=== PATIENT | female | born 1935 | race Caucasian/White ===

== ENCOUNTER 2018-01-04 09:38 | Emergency (ER) | payer MEDICARE ==
[~2018-01-04] VITALS: Ht 165.1 cm; Wt 68.0 kg
[~2018-01-04 09:38] MED LIST: ASPIRIN EC325 M1 PO; CALCIUM 600 +1 EAC1 PO; HYDROCODON-ACE1 EAC7 PO; IRON PO; IRON325; NEURONTIN 300300 M1 PO; PRILOSEC 20 MG20 MG PO; RECLAST 55 MG/100 M IV; TOPROL XL50 MG PO; VITAMIN D1000 UNI1 PO; ZESTORETIC 20-1 EAC3 PO; ZOCOR 20 MG TAB20 M1 PO
[2018-01-04] MEDS ORDERED: LISINOPRIL10 MG PO (09:57)
[2018-01-04] MEDS ORDERED: BIOTENE1000 ML (09:58)
[2018-01-04 10:34] LABS: URINE BILIRUBIN NEGATIVE (Negative); URINE BLOOD NEGATIVE (Negative); URINE CLARITY CLEAR; URINE COLOR YELLOW; URINE GLUCOSE-RANDOM NEGATIVE (Negative); URINE KETONES NEGATIVE (Negative); URINE LEUKOCYTES-REFLEX NEGATIVE (Negative); URINE NITRITE-REFLEX NEGATIVE (Negative); URINE PROTEIN TRACE (Negative); URINE UROBILINOGEN 0.2 E.U./dl (0.2-1.0)
[2018-01-04] MEDS ORDERED: NORCO 5-325 TA1 EACH PO (11:28)
[2018-01-04] MEDS ORDERED: CYCLOBENZAPRINE5 MG PO (11:28)
[2018-01-04 11:46] VITALS: BP 153/75
== END 2018-01-04 11:48 | disposition home or self-care (01) ==
LOC: M.ERS 09:38
PROVIDERS: Personal Emergency Response Attendant
DX: M25.552 Pain in left hip (principal); I25.10 Atherosclerotic heart disease of native coronary artery without angina pectoris; I10 Essential (primary) hypertension; M81.0 Age-related osteoporosis without current pathological fracture; Z90.49 Acquired absence of other specified parts of digestive tract; Z88.8 Allergy status to other drugs, medicaments and biological substances

== ENCOUNTER → 2018-04-10 | Outpatient (CLI) | payer MEDICARE ==
[~2018-04-10] MED LIST changes: +BIOTENE1000 ML; +CYCLOBENZAPRINE5 MG PO; +LISINOPRIL10 MG PO; +NORCO 5-325 TA1 EACH PO
== END ==
LOC: M.CT 08:22
DX: K76.0 Fatty (change of) liver, not elsewhere classified (principal); K86.89 Other specified diseases of pancreas; M47.816 Spondylosis without myelopathy or radiculopathy, lumbar region; Z95.0 Presence of cardiac pacemaker

== ENCOUNTER 2020-06-10 16:13 | Inpatient (IN) | payer MEDICARE ==
[~2020-06-10] VITALS: Ht 165.1 cm; Wt 72.1 kg
[2020-06-10 16:15] VITALS: BP 224/109
[2020-06-10 16:38] LABS: ABSOLUTE BASOPHILS 0.1 thou/uL (0.0-0.2); ABSOLUTE EOSINOPHILS 0.3 thou/uL (0.0-0.7); ABSOLUTE LYMPHOCYTES 1.5 thou/uL (0.8-5.3); ABSOLUTE MONOCYTES 0.7 thou/uL (0.0-1.2); ABSOLUTE NEUTROPHILS 4.2 thou/uL (1.6-8.1); BASOPHILS 1.1 %; EOSINOPHILS 4.7 %; HEMATOCRIT 40.6 % (37.0-47.0); HEMOGLOBIN 13.9 gm/dL (12.0-15.0); LYMPHOCYTES 22.2 %; MCH 29.8 pg (26.0-34.0); MCHC 34.2 g/dL (28.0-37.0); MCV 87.1 fL (80.0-100.0); MONOCYTES 10.8 %; MPV 7.6 fl. (7.2-11.1); NUCLEATED RBCS 0 /100WBC; PLATELET COUNT* 209 thou/uL (150-400); POLYS 61.2 %; RBC 4.67 mil/uL (4.20-5.00); RDW-CV 12.7 % (10.5-14.5); WBC 6.8 thou/uL (4.0-11.0)
[2020-06-10 16:47] LABS: CALCIUM 9.1 mg/dL (8.5-10.1); POTASSIUM 3.9 mmol/L (3.5-5.1)
[2020-06-10 17:03] LABS: ALBUMIN 4.1 g/dL (3.4-5.0); TOTAL BILIRUBIN 0.5 mg/dL (<0.1-1.0); TOTAL PROTEIN 7.8 g/dL (6.4-8.2)
[2020-06-10 19:40] VITALS: BP 196/94
[2020-06-11 04:18] LABS: ABSOLUTE EOSINOPHILS 0.2 thou/uL (0.0-0.7); ABSOLUTE MONOCYTES 0.6 thou/uL (0.0-1.2); ABSOLUTE NEUTROPHILS 5.4 thou/uL (1.6-8.1); BASOPHILS 0.6 %; EOSINOPHILS 2.9 %; HEMATOCRIT 42.2 % (37.0-47.0); HEMOGLOBIN 14.1 gm/dL (12.0-15.0); LYMPHOCYTES 13.4 %; MCH 29.4 pg (26.0-34.0); MCHC 33.4 g/dL (28.0-37.0); MCV 87.9 fL (80.0-100.0); MONOCYTES 7.8 %; MPV 8.3 fl. (7.2-11.1); NUCLEATED RBCS 0 /100WBC; PLATELET COUNT* 217 thou/uL (150-400); POLYS 75.3 %; RDW-CV 13.3 % (10.5-14.5); WBC 7.2 thou/uL (4.0-11.0)
[2020-06-11 04:39] LABS: POTASSIUM 3.7 mmol/L (3.5-5.1)
--- NOTE | 2020-06-11 06:09 | NUR ---
ASSUMED PT'S CARE THIS PM SHIFT. PT BOARDING IN THE ER. PT ALERT AND ORIENTED. UP AD NINFA. PT SLEPT WELL THIS SHIFT. PT DID COMPLAIN OF CHEST PAIN OF 5. NITRO GIVEN PER EMAR. PT'S DTR BIANCA CALLED THIS AM TO CHECK ON PT. PT CURRENTLY SLEEPING. WILL CONTINUE TO MONITOR.
[2020-06-11 07:54] VITALS: BP 162/77
--- NOTE | 2020-06-11 11:01 | EKG ---
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1935 Requested By: Estevan Dash Order Number: [id number] MD: Carlos Perez Measurements Intervals [place] Rate: 61 P: 29 MN: 194 QRS: 70 QRSD: 98 T: -8 QT: 427 QTc: 430 Interpretive Statements Sinus rhythm Possible anteroseptal infarct, old Borderline repolarization abnormality Baseline wander in lead(s) II,III,aVR,aVL,aVF,V1,V2,V3,V4,V5,V6 No previous ECG available for comparison Electronically Signed On 06-11-2020 11:01:49 CDT by Carlos Perez [email or web address] <ELECTRONICALLY SIGNED> By: Carlos Perez MD, [facility] 06/11/20 1101 1620 1620 Carlos Perez MD, [facility] /EPI
[2020-06-11 15:34] VITALS: BP 140/75
[2020-06-11 15:35] VITALS: BP 131/70
--- NOTE | 2020-06-11 15:39 | NUR ---
PT ADMITTED WITH HYPERTENSIVE URGENCY. PT ALERT AND ORIENTED. PT RESTING IN BED. PT DENIES ANY PAIN AT THIS TIME. PT ORIENTED TO ROOM. FALL RISK PRECAUTIONS IN PLACE. WILL CONTINUE TO MONITOR.
[2020-06-11 16:00] VITALS: BP 131/70
--- NOTE | 2020-06-11 16:42 | NUR ---
PT REMAINED ALERT AND ORIENTED. PT RESTING IN BED. PT DENIES ANY PAIN THIS SHIFT. FALL RISK PRECAUTIONS IN PLACE. HOURLY ROUNDING COMPLETED. TELE MONITORED. WILL CONTINUE TO MONITOR.
[2020-06-11 20:10] VITALS: BP 150/70
[2020-06-11 20:20] VITALS: BP 193/102
[2020-06-12] VITALS: BP 153/69
[2020-06-12 04:00] VITALS: BP 179/84
--- NOTE | 2020-06-12 04:34 | NUR ---
RECEIVED REPORT AND ASSUMED CARE OF PATIENT AT 1900. FULL ASSESSMENT COMPLETED CHARTED. BED LOCKED AND IN LOW POSITION, PERSONAL ITEMS AND CALL LIGHT IN REACH. PT A&OX3, ON RA, SR ON MONITOR, NO SKIN ISSUES, DENIES PAIN, UP STANDBY, NPO SINCE MIDNIGHT FOR STRESS TEST IN AM.
[2020-06-12 08:00] VITALS: BP 147/82
--- NOTE | 2020-06-12 09:24 | CON ---
[address] [address] CONSULTATION Name: DELILAH CEJA Room: [address] IN M.R.#: [id number] Admission: 06/12/20 Attend Phys: Jose Armando Cary MD Discharge: Date of : 35 Report #: [id number] THIS REPORT FOR: //name// cc: Marium Fowler MD, Lin W. MD ~ THIS REPORT FOR: //name// CC: Jose Armando CORREA MD INDICATION: Chest pain. HISTORY OF PRESENT ILLNESS: The patient is a very pleasant 84-year-old white female who had 5-vessel coronary artery bypass grafting in [place] 8 years ago. She has been relatively stable since that time. Risk factors include family history of coronary artery disease, hypertension and dyslipidemia. She fell 2 weeks ago. More recently, she was having some right-sided pain that was worse with inspiration. Yesterday, this gradually evolved into some pain radiating across to the mid sternal area that felt somewhat more consistent with the pain she had experienced prior to her bypass surgery. The pain had resolved. Thus far, her EKG appears stable and enzymes unremarkable. She is not having that type of pain presently. She did have some relief with nitroglycerin with the heaviness in the mid portion of her chest. PAST MEDICAL HISTORY: 1. Myocardial infarction in 2011, leading to 5-vessel coronary artery bypass grafting in [place]. 2. Hypertension. 3. Dyslipidemia. FAMILY HISTORY: Positive for coronary artery disease. The patient's mother had heart disease in her 60s. Her father of a heart attack at age 72. REVIEW OF SYSTEMS: A 14-point review of systems is positive for occasional nonproductive cough, chest discomfort as outlined above, mild dyspnea on exertion, wears glasses without acute visual loss. Otherwise, 14-point review of systems unremarkable. PHYSICAL EXAMINATION: VITAL SIGNS: Blood pressure presently 166/82, pulse is 66 and regular. GENERAL: This is a pleasant lady in no distress. Mood and affect appropriate. HEENT: The patient is wearing glasses. Extraocular muscles are intact. Mucous membranes are moist. NECK: Shows no jugular venous distention. [place] [address] CONSULTATION Name: DELILAH CEJA Room: [address] IN [facility].#: [id number] Admission: 06/12/20 Attend Phys: Jose Armando Cary MD Discharge: Date of : 35 Report #: [id number] CHEST: Reveals clear lung daniels. CARDIOVASCULAR: Reveals a regular rhythm without gallop or murmur. ABDOMEN: Reveals normal bowel sounds. The abdomen is soft and nontender. EXTREMITIES: Shows no edema. Peripheral pulses are palpable. LABORATORY DATA: Cardiac enzymes are unremarkable. A 12-lead EKG shows sinus rhythm without acute ST or T-wave abnormality. Chest x-ray shows no acute abnormality. IMPRESSION AND RECOMMENDATIONS: 1. Chest pain with some features to suggest possible progressive angina. The patient has a history of coronary artery disease as outlined above. We will proceed with noninvasive stress testing. Further intervention pending those results. 2. Hypertension. Blood pressure moderately elevated. We will increase metoprolol succinate to 50 mg twice daily. Continue lisinopril at current dose. 3. Coronary artery disease. Continue daily aspirin and isosorbide. 4. Dyslipidemia. Continue statin agent with goal LDL of 70 or less. <ELECTRONICALLY SIGNED> By: Corby Holt MD, FACC 06/12/2024 0949 [id number] Holt MD, FACC /nt
[2020-06-12] MEDS ORDERED: TOPROL XL25 MG PO (09:44)
[2020-06-12 12:00] VITALS: BP 159/85
--- NOTE | 2020-06-12 14:49 | NUR ---
Pt is A&O. Resides at home with her . Independent and active. No DME. No hx of HH. Hx of skilled in [place] post open heart surgery. Pt to have stress test today. Goal is home once medically stable, no needs anticipated.
--- NOTE | 2020-06-12 14:55 | EKG ---
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
[2020-06-12 16:00] VITALS: BP 193/102
--- NOTE | 2020-06-12 17:29 | CARDNUC ---
[place] [address] CARDIAC NUCLEAR IMAGING REPORT Name: DELILAH CEJA Room: [address] IN [facility]#: [id number] Admission: 06/12/20 Attend Phys: Jose Armando Cary, Discharge: Date of : 35 Date of Service: 06/12/20 1728 Report #: [id number] THIS REPORT FOR: cc: Marium Fowler MD, Lin W. MD Liston, Michael J. MD MERGED WITH [facility] ~ APPROVED REPORT Imaging Protocol: Rest Tc-99m/Stress Tc-99m 1 day Study performed: 06/11/2020 09:53:00 Indication: Chest pain, HTN urgency. Patient Location: In-Patient Room #: 204 Stress Tech: Sonja Gamboa Stress Nurse: Madonna Garces RN NM Tech:VASILE Masterson Ht: 5 ft 5 in Wt: 150 lbs BSA: 1.75 m2 BMI: 24.95 Medical History Medical History: Angina, CAD s/p [place], CAD s/p CABG, Mild dyspnea, HTN urgency, Recent fall, HLD. Medications: ASA 325 Mg, Lisinopril, Metoprolol, Atorvastatin, Hydralazine. Allergies: Alendronate Sodium, Raloxifene. Cardiac Risk Factors: Age, FHX of CAD, HTN, Hyperlipidemia, SOB. Previous Cardiac Procedures: Myocardial infarction, CABG. Pretest Chest Pain Characteristics: No chest pain Exercise History: Indeterminate Physical Disabilities: Recent fall/weak. Meds Held (24 hrs): Metoprolol, Lisinopril. Resting Data Rest SPECT myocardial perfusion imaging was performed in supine position 30 minutes following the intravenous injection of 10.0 mCi of Tc-99m Sestamibi. Time of rest injection: 1255 Date: 06/12/2020 The images were gated to evaluate regional wall motion and calculate left ventricular ejection fraction. Administration Route: IV Administration Site: [place] [address] CARDIAC NUCLEAR IMAGING REPORT Name: DELILAH CEJA Room: [address] IN [facility]#: [id number] Admission: 06/12/20 Attend Phys: Jose Armando Cary, Discharge: Date of : 35 Date of Service: 06/12/20 1728 Report #: [id number] Pharmacologic Stress Pharmacologic stress test was performed by injecting Regadenoson 0.4 mg IV push over 10-15 seconds immediately followed by the intravenous injection of 33.6 mCi of Tc-99m Sestamibi. Time of stress injection: 1435 Date: 06/12/2020 Administration Route: IV Administration Site: Left Gated Stress SPECT was performed 40 minutes after stress injection. The images were gated to evaluate regional wall motion and calculate left ventricular ejection fraction. Prone imaging was performed. Stress Test Details Stress Test: Pharmacologic stress testing performed using 0.4 mg of regadenoson per 5 mL given IV over 10 seconds. Reason for pharmacologic stress test: Recent fall/weak.. HR Max Heart Rate (APMHR): 136 bpm Resting HR: 73 bpm Target HR (85% APMHR): 115 bpm Max HR Achieved: 125 bpm % of APMHR: 91 Recovery HR: 103 bpm BP Resting BP: 171/89 mmHg Max BP: 136/78 mmHg Recovery BP: 198/107 mmHg ECG Resting ECG: Sinus Rhythm, nonspecific ST-T abnormalities Stress ECG: Sinus Rhythm, nonspecific ST-T abnormalities ST Change: Downsloping ST depression Maximum ST Deviation: 1 mm Arrhythmia: VPC's Recovery ECG: Sinus Rhythm Recovery ST Change: Downsloping ST depression Recovery ST Deviation: 1 mm Recovery Arrhythmia: VPC Clinical Reason for Termination: Completed protocol Stress Symptoms: Abdominal discomfort, Lightheaded, Headache, Bowel activity, arm and hand numbness. Exercise duration: 00 min 00 [place] [address] CARDIAC NUCLEAR IMAGING REPORT Name: DELILAH CEJA Room: [address] IN M.R.#: [id number] Admission: 06/12/20 Attend Phys: Jose Armando Cary, Discharge: Date of : 35 Date of Service: 06/12/20 1728 Report #: [id number] Exercise capacity: 1.00 METs The patient tolerated Lexiscan infusion without significant cardiac symptoms. Nurse Comments An 84 year old female inpatient presented for a sitting Lexiscan r/t HTN urgency and chest pain. Test well tolerated. Recovery continued with HTN as test symptoms subsided. Dr. Prieto consulted for HTN. Patient was escorted by staff via wheelchair to Nuclear Medicine for imaging. Patient stated she felt better at that time. Staff nurse notified of patients HTN before she returned to her room. Stress ECG Conclusion Twelve-lead EKG shows sinus rhythm with subtle ST segment depression that is horizontal in nature in lead V6. EKGs obtained during and post Lexiscan infusion show downsloping ST segment depression in the inferolateral leads of up to 1 to 1.5 mm. There were no stress-induced arrhythmias. Study Quality Study: Good Artifact: Mild Diaphragmatic artifact Study Data At rest, the left ventricular ejection fraction was 66%.. Post stress, the left ventricular ejection was 68%.. TID = 1.11. Perfusion Perfusion images show a moderate sized moderate intensity reversible defect of the basal to mid inferior wall. No other significant fixed or reversible defects are identified. Wall Motion There is hypokinesis of the basal to mid inferior and inferoseptal wall. Nuclear Conclusion ECG Findings: equivocal Clinical Findings: negative for ischemia Nuclear Findings: positive for ischemia Exercise Capacity: not assessed Left Ventricular Function: Preserved Risk Study: high Perfusion study show evidence of basal to mid inferior wall ischemia. Global LV systolic function is preserved. Is [place] [address] CARDIAC NUCLEAR IMAGING REPORT Name: DELILAH CEJA Room: [address] IN [facility].#: [id number] Admission: 06/12/20 Attend Phys: Jose Armando Cary, Discharge: Date of : 35 Date of Service: 06/12/201727 Report #: [id number] <Conclusion> Twelve-lead EKG shows sinus rhythm with subtle ST segment depression that is horizontal in nature in lead V6. EKGs obtained during and post Lexiscan infusion show downsloping ST segment depression in the inferolateral leads of up to 1 to 1.5 mm. There were no stress-induced arrhythmias. <ELECTRONICALLY SIGNED> By: Corby Holt MD, FACC 06/12/201727 27 27 Corby Holt MD, FACC /INF
[2020-06-13] VITALS (24 sets, daily range): BP systolic 92–180; BP diastolic 49–93
--- NOTE | 2020-06-13 04:10 | NUR ---
RECEIVED REPORT AND ASSUMED CARE OF PT AT 1900. FULL ASSESSMENT COMPLETED CHARTED. CALL LIGHT AND PERSONAL ITEMS IN REACH, BED LOCKED AND IN LOW POSITION. PT A&OX4, ON RA, SR ON MONITOR, UP STANDBY, DENIES PAIN, CURRENTLY NPO.
--- NOTE | 2020-06-13 13:32 | NUR ---
Pt to have heart cath today. Possible dc to home tomorrow. Following.
--- NOTE | 2020-06-13 15:08 | NUR ---
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 LOCK AND DAM EQUIPMENT REPAIRER NURSING STAFF AT PT BEDSIDE, REPORT RECEIVED. PT C/O CHEST PAIN. EKG HAS BEEN ORDERED AND IS BEING COMPLETED. CARDIAC LOCK AND DAM EQUIPMENT REPAIRER NURSING STAFF HAVE SEEN EKG AND ARE IN CONTACT WITH RN INTERNAL MEDICINE. PT VS ARE 108/59, 75, 18 AND 91% ON ROOM AIR. GROIN SITE DRESSING IS DRY AND INTACT. TISSUE SURROUNDING SITE IS SOFT TO TOUCH. RIGHT PEDAL PULSE IS 2+ with warm foot and cap refill which is less than 3 seconds. At 1430 pt transfer via bed to icu. report regarding am nursing assessment, vital signs given to icu nurse assuming care. results of cardiac cath to be given by corn lab technician rn
--- NOTE | 2020-06-13 15:30 | EKG ---
[place] [address] ELECTROCARDIOGRAM REPORT Name: DELILAH CEJA Room: [address] IN .R.#: [id number] Admission: 06/12/20 Attend Phys: Jose Armando Cary, Discharge: Date of : 35 Date of Service: 06/13/20 1408 Report #: [id number] THIS REPORT FOR: //name// [facility] Test Date: 2020-06-13 Test Time: 14:08:14 Pat Name: DELILAH CEJA Department: Room: [facility] Gender: F Psychological Aide: : 1935 Requested By: Corby Holt Order Number: [id number] Reading MD: Corby Holt Measurements Intervals [place] Rate: 73 P: 68 RI: 209 QRS: 65 QRSD: 91 T: 65 QT: 413 QTc: 456 Interpretive Statements Sinus rhythm Probable left atrial enlargement Probable left ventricular hypertrophy Inferior infarct, acute (LCx) Lateral leads are also involved Compared to ECG 06/10/2020 16:34:18 No significant changes Electronically Signed On 06-13-2020 15:30:47 CDT by Corby Holt [email or web address] <ELECTRONICALLY SIGNED> By: Corby Holt MD, FAC 06/13/20 1530 1408 1408 Corby Holt MD, FAC /EPI
[2020-06-13 15:57] LABS: HEMOGLOBIN 15.4 gm/dL (12.0-15.0); MCHC 34.2 g/dL (28.0-37.0); MCV 87.7 fL (80.0-100.0); MPV 7.6 fl. (7.2-11.1); RBC 5.13 mil/uL (4.20-5.00); RDW-CV 13.1 % (10.5-14.5); WBC 8.3 thou/uL (4.0-11.0)
[2020-06-13 16:05] LABS: APTT 54.1 Seconds (25.0-31.3); INR 1.4
--- NOTE | 2020-06-13 16:53 | NUR ---
RECEIVED BEDSIDE REPORT AND ASSUMED CARE OF PT @ 1430.PT IS A/O X4.VSS.NEW IV INSERTED IN RIGHT WRIST.HEPARIN GTT INITATED PER CARDIOLOGY PROTOCOL.NITROGLYCERIN GTT INFUSING PER TITRATION ORDERS.POST CATH EKG COMPLETED.PT HAS HAD NAUSEA-MEDICATIONS GIVEN.CHEST PAIN MANAGED WITH IV MEDICATIONS.RIGHT GROIN CATH SITE CLEAN,DRY, AND INTACT.POST CATH VITALS COMPLETED.REMAINS ON BEDREST UNTIL 192906/13/20.CALL LIGHT AND FALL PRECAUTIONS IN PLACE.WILL CONTINUE TO MONITOR FOR DURATION OF SHIFT.
[2020-06-14] VITALS (30 sets, daily range): BP systolic 96–159; BP diastolic 46–78
--- NOTE | 2020-06-14 05:23 | NUR ---
VITALS STABLE, TEMP MAX 99.0 F. PATIENT DENIES PAIN/DISCOMFORT. NITRO GTT TURNED OFF AROUND 2100. PT SLEPT THROUGH THE NIGHT. HEPARIN GTT REMAINS RUNNING. OTHERWISE UNEVENTFUL NIGHT.
[2020-06-14 08:42] LABS: ABSOLUTE EOSINOPHILS 0.1 thou/uL (0.0-0.7); ABSOLUTE LYMPHOCYTES 1.1 thou/uL (0.8-5.3); BASOPHILS 0.3 %; EOSINOPHILS 0.7 %; LYMPHOCYTES 9.7 %; MCH 29.1 pg (26.0-34.0); MCHC 33.4 g/dL (28.0-37.0); MONOCYTES 9.2 %; MPV 7.9 fl. (7.2-11.1); NUCLEATED RBCS 0 /100WBC; PLATELET COUNT* 218 thou/uL (150-400); POLYS 80.1 %; RBC 4.83 mil/uL (4.20-5.00); RDW-CV 12.9 % (10.5-14.5); WBC 11.3 thou/uL (4.0-11.0)
[2020-06-14 08:55] LABS: ALBUMIN 3.5 g/dL (3.4-5.0); CALCIUM 9.2 mg/dL (8.5-10.1); POTASSIUM 3.8 mmol/L (3.5-5.1)
[2020-06-14 08:56] LABS: TROPONIN-I LEVEL 11.44 ng/mL (<0.06)
--- NOTE | 2020-06-14 09:08 | NUR ---
3618 ASSUMED CARE OF PATIENT. PLEASE SEE DOCUMENTED ASSESSMENT. PATIENT DENIES CHEST PAIN. PLAN IS TO ORDER DIET AND REMOVE VICK CATHETER,MONITOR FOR CHEST PAIN
--- NOTE | 2020-06-14 13:37 | NUR ---
1235 PATIENT IS NOW TELEMETRY STATUS. PATIENT AND DAUGHTER INFORMED OF THIS.
--- NOTE | 2020-06-14 14:51 | NUR ---
ICU rounds: Tele status. Goal is home.
--- NOTE | 2020-06-14 16:59 | CARD ---
[address] [address] CARDIAC CATH REPORT Name: DELILAH CEJA Room: [address] ADM IN .R.#: [id number] Admission: 06/12/20 Attend Phys: Jose Armando Cary MD Discharge: Date of : 35 Report #: [id number] THIS REPORT FOR: //name// cc: Marium Fowler MD, Lin W. MD ~ ADDENDUM APPROVED REPORT Study performed: 06/13/2020 11:39:26 Patient Details Patient Status: In-Patient Room #: The patient is a 84 year-old female Event Personnel Corby Holt State Epidemiologist, Erinn Berman RN RN, Khurram Kaba [facility] NURSE Monitor, Deep Muse [facility] NURSE Scrub, Heidi Francis RN Monitor, , Carlos Perez Information Technology Data Analyst, Angelita Ramos RTR Monitor Procedures Performed Art Access - R femoral artery Left Heart Cath w/or w/o Coronaries [facility] Place w/wo Plasty Single CIRC Hemostasis w/ Mynx Admission/Lab Medications/Medications given during procedure Fentanyl IV 25 mcg, Midazolam (Versed) IV 2 mg, Oxygen Nasal cannula 2 l per min, Lidocaine Subcut 14 ml, 0.9% Sodium Chloride IV 75 ml per hr, Oxygen Nasal cannula 4 l per min, Angiomax IV 11 ml, Nitroglycerin SL 0.4 mg, Angiomax Drip IV 26.07 ml per hr, Apresoline IV 10 mg, Zofran (Ondansetron) IV 4 mg, Effient PO 60 mg Procedure Narrative The patient was brought urgently to the Cardiac Catheterization Laboratory and was prepped and draped in a sterile manner. The right femoral was infiltrated with 2% Lidocaine subcutaneous anesthesia. A [place] 6 FR sheath was inserted into the right femoral artery. Coronary angiography was performed using coronary diagnostic catheters. The right coronary system was accessed and visualized with a Diagnostic 6 Fr JR 4 catheter. The left coronary system was accessed and visualized with a Diagnostic 6 Fr JL 4 catheter. The left ventricle was accessed and visualized with a Diagnostic 6 Fr Pigtail catheter. Left ventricular/Aortic Valve gradient assessed via catheter pullback. Left ventriculogram was performed in [place] projection. Closure device was deployed with a Fr mynx 6f/7f. The patient tolerated the procedure well and there were no complications associated with the procedure. [place] [address] CARDIAC CATH REPORT Name: DELILAH CEJA Room: [address] IN [facility].#: [id number] Admission: 06/12/20 Attend Phys: Jose Armando Cary MD Discharge: Date of : 35 Report #: [id number] Intraoperative Conscious Sedation Sedation start time: 12:07 Case end Time: 13:23 Fentanyl 50 mcg Versed 2 mg Fluoro Time: 23.9 minutes Dose: DAP 538162 cGycm2 2502 mGy Contrast Type and Amount: Visipaque 350 ml Coronary Angiography The patient's coronary anatomy is right dominant. [place] Artery Percent Stenosis A COLLIER graft to the distal LAD appears very small in caliber and possibly atretic. A saphenous vein graft to a large second diagonal branch is widely patent with good proximal and distal anastomoses. A saphenous vein graft presumed to be to the obtuse marginal branch is is totally occluded proximally. An ostia for a possible right coronary graft appears occluded. Diagnostic Cath Left Main The left main coronary artery appears calcified and somewhat ectatic bifurcating into a left anterior descending and circumflex coronary artery. LAD The proximal LAD appears ectatic with a 70% tubular narrowing in the midportion. Distally the vessel is filled by collateral flow from the COLLIER graft and a graft to diagonal branch. Diagonal 1 A small first diagonal branch appears small in caliber and diffusely diseased. Diagonal 2 A large branch second diagonal branch is grafted with a saphenous vein graft and fills the distal LAD retrogradely. Circumflex The circumflex coronary artery has a 90% long tubular stenosis distally. OM1 A first obtuse marginal branch is small in size and diffusely plaqued. A portion of saphenous vein graft is noted to connect the first and second obtuse marginal branches. OM2 A second obtuse marginal branch is moderate in size and diffusely plaqued. Right Coronary The right coronary artery is diffusely plaqued without hemodynamically significant stenoses. R PDA The right PDA is diffusely diseased with long tubular 70% [place] [address] CARDIAC CATH REPORT Name: DELILAH CEJA Room: [address] IN [facility].#: [id number] Admission: 06/12/20 Attend Phys: Jose Armando K. Luis Daniel, MD Discharge: Date of : 35 Report #: [id number] RPLV A small right posterior lateral LV branch is diffusely diseased up to 70%. Left Ventriculography The left ventricle is normal in size with Preserved contractility. The left ventricular ejection fraction is estimated to be 55-60%. There appears to be subtle hypokinesis in the distal inferolateral wall. Hemodynamics The aortic pressure is 164/72 mmHg with a mean of 69 mmHg. The left ventricular pressure is 156/5 mmHg with a mean of mmHg. The left ventricular end diastolic pressure is 11 mmHg. PCI Technique Lesion Anticoagulation was achieved with Angiomax Drip. Patient was preloaded with Angiomax IV 11 ml. Percutaneous coronary intervention was performed on the distal circumflex artery segment. The lesion stenosis prior to intervention was 90% with KESHIA flow. A 6F XB LAD 3.5 Guide Catheter was used to engage the left ostium. A IG: BMW 190cm Interventional Guidewire was used to cross the lesion. BALLOON DILATION A Balloon catheter Mini Trek RX 2.0 X 15 was inserted and inflated up to 8.00atm for 11seconds. Additional Inflation: 8.00atm for 7seconds. Additional Inflation: 8.00atm for 9seconds. STENT DEPLOYMENT A drug-eluting stent Aramis RX Stent 2.0X22mm was inserted and inflated up to 24.00atm for 10seconds. A drug- eluting stent Aramis RX Stent 2.0 x 8mm was inserted and inflated up to 10 LARRY for 6 seconds and 11 LARRY for 7 seconds. POST STENT DEPLOYMENT BALLOON DILATION A Balloon catheter NC Trek RX 1.5 X 12 was inserted and inflated up to 24.00atm for 11seconds. Additional Inflation: 24.00atm for 6seconds. A balloon catheter NC Trek RX 2.25 x 12 was inserted and inflated up to 10 LARRY for 9 seconds, 12 LARRY for 7 seconds, and 14 LARRY for 8 seconds. Final angiography reveals 10 % stenosis with KESHIA 3 flow. Conclusion 1. Severe three-vessel coronary artery disease as outlined above. 2. Patent COLLIER graft to the LAD that appears possibly atretic. [address] [address] CARDIAC CATH REPORT Name: DELILAH CEJA Room: [address] IN M.R.#: [id number] Admission: 06/12/20 Attend Phys: Jose Armando Cary MD Discharge: Date of : 35 Report #: [id number] 3. Widely patent saphenous vein graft to a large second diagonal branch. 4. Occluded saphenous vein graft to the obtuse marginal branches. 5. Probable occluded graft to the right coronary artery. 6. Preserved left ventricular systolic function. 7. Normal left ventricular end-diastolic pressure. 8.Successful PCI with deployment of sequential drug eluting stents at the site of 90% distal Cx stenosis with 10% residual narrowing and KESHIA 3 flow to the distal vessel. Recommendations Cardiac Risk Reduction Program 1. Percutaneous coronary intervention to the unprotected circumflex marginal system. 2. Continue aggressive risk factor modification and medical management. Medications Administered Aspirin (any) Ticagrelor Diagnostic Cath Approved by: Corby Holt MD Date/Time: 06/14/2020 16:58:02 <ELECTRONICALLY SIGNED> By: Carlos Perez MD, [facility] 06/14/20 1658 1658 1658Jojoe Perez MD, FACC /INF
--- NOTE | 2020-06-14 17:09 | NUR ---
PATIENT PROGRESSING TOWARDS GOALS. PATIENT IS NOW TELEMETRY STATUS. NO CHEST PAIN TODAY. OFF OF HEPARIN DRIP. VICK CATHETER DISCONTINUED. PATIENT IS UP TO C TO VOID. PT IS CONSTIPATED. THIS IS ADDRESSED. VSS. SEEN BY [facility]. DAUGHTER HAS VISITED.
[2020-06-15] VITALS (15 sets, daily range): BP systolic 86–127; BP diastolic 53–73
--- NOTE | 2020-06-15 05:26 | NUR ---
VITALS STABLE, AFEBRILE. DENIES PAIN, DISCOMFORT, NAUSEA. SLEPT THROUGH THE NIGHT. ABLE TO GET UP TO THE COMMODE WITH NO DIFFICULTY. CALL LIGHT WITHIN REACH.
[2020-06-15] MEDS ORDERED: NITROGLYCERIN0.4 MG SUBLING (08:25)
[2020-06-15] MEDS ORDERED: LIPITOR 40 MG T40 M1 PO (08:25)
[2020-06-15] MEDS ORDERED: EFFIENT10 MG PO (08:25)
[2020-06-15 09:26] LABS: CHOLESTEROL 162 mg/dL (<200); HDL CHOLESTEROL 70 mg/dL (>40); LDL CHOLESTEROL 79 mg/dL (<100); TC:HDL 2.3 Ratio (Not establshd); TRIGLYCERIDE 65 mg/dL (<150); VLDL 13 mg/dL (<40)
[2020-06-15 09:27] LABS: SERUM ASSESSMENT Clear
--- NOTE | 2020-06-15 11:35 | NUR ---
DISCHARGE ORDERS RECIEVED ON PATIENT, [facility] CAME TPO WALK PATIENT PRIOR TO DISCHARGE. PATIENT BECAME DIZZY UPON STANDING. ORTHOSTATICS WERE COMPLETED AND SITTING 93/53 STANDING 86/54 LAYING DOWN 88/55, AFTER 5-10 MIN OF LAYING BLOOD PRESSURE RETURNED TO 112/54. DR CERNA IS AWARE AND PUTTING PARAMETER ON BLOOD PRESSURE MEDICATIONS. WILL CALL [facility] AND UPDATE THEM.
--- NOTE | 2020-06-15 11:44 | EKG ---
[place] [address] ELECTROCARDIOGRAM REPORT Name: DELILAH CEJA Room: [address] ADM IN M.R.#: [id number] Admission: 06/12/20 Attend Phys: Jose Armando Cary, Discharge: Date of : 35 Date of Service: 06/13/20 1546 Report #: [id number] THIS REPORT FOR: //name// [facility] Test Date: 2020-06-13 Test Time: 15:46:02 Pat Name: DELILAH CEJA Department: Room: [address] Gender: F Filling Carrier: : 1935 Requested By: Carlos Perez Order Number: [id number] Gustavo MD: Corby Holt Measurements Intervals Emily Rate: 78 P: 144 OH: 234 QRS: 137 QRSD: 92 T: 132 QT: 394 QTc: 449 Interpretive Statements Sinus rhythm Prolonged OH interval Probable left atrial enlargement Limb leads reversed Consider left ventricular hypertrophy Persistent ST elevation inferolateral leads compared to ECG 06/13/2020 14:08:14 First degree AV block now present Electronically Signed On 06-15-2020 11:44:38 CDT by Corby Holt [email or web address] <ELECTRONICALLY SIGNED> By: Corby Holt MD, FACC 06/15/20 1144 1546 1546 Corby Holt MD, FAC /EPI
--- NOTE | 2020-06-15 14:24 | NUR ---
PATIENT DISCHARGED HOME AFTER FLUID BOLUS INFUSED. PATIENT CONTINUED TO HAVE ORTHOSTATIC HYPOTENSION, CALLED TO ZENA ROMERO AND ORDER RECIEVED TO DECREASE METOPROLOL TO 25 MG BID HER NORMAL DOSE AND TO HOLD IF SBP IS LESS THAN 110. PATIENT VERBILIZES UNDERSTANDING OF DISCHARGE INSTRUCTIONS.
== END 2020-06-15 14:20 | disposition home health service (06) | DRG 246 ==
LOC: M.ERS 16:13 → M.TBA-ER 17:55 → M.2W 06-11 15:29 → M.ICU 06-13 14:32
PROVIDERS: Emergency Medicine Emergency Medical Services; Internal Medicine; Registered Nurse; ADMIT Internal Medicine; ATTEND Internal Medicine
PROC: 027135Z Dilation of Coronary Artery, Two Arteries with Two Drug-eluting Intraluminal Devices, Percutaneous Approach (ICD-10-PCS; principal; 2020-06-13)
PROC: B215YZZ Fluoroscopy of Left Heart using Other Contrast (ICD-10-PCS; principal; 2020-06-13)
PROC: B213YZZ Fluoroscopy of Multiple Coronary Artery Bypass Grafts using Other Contrast (ICD-10-PCS; principal; 2020-06-13)
PROC: B211YZZ Fluoroscopy of Multiple Coronary Arteries using Other Contrast (ICD-10-PCS; principal; 2020-06-13)
PROC: 4A023N7 Measurement of Cardiac Sampling and Pressure, Left Heart, Percutaneous Approach (ICD-10-PCS; principal; 2020-06-13)
PROC: 3E033PZ Introduction of Platelet Inhibitor into Peripheral Vein, Percutaneous Approach (ICD-10-PCS; principal; 2020-06-13)
DX: I25.710 Atherosclerosis of autologous vein coronary artery bypass graft(s) with unstable angina pectoris (principal); I21.4 Non-ST elevation (NSTEMI) myocardial infarction; M81.0 Age-related osteoporosis without current pathological fracture; I10 Essential (primary) hypertension; E78.5 Hyperlipidemia, unspecified; Z20.828 Contact with and (suspected) exposure to other viral communicable diseases; I16.0 Hypertensive urgency; Z95.1 Presence of aortocoronary bypass graft; I25.2 Old myocardial infarction; Z79.899 Other long term (current) drug therapy; Z88.8 Allergy status to other drugs, medicaments and biological substances

== ENCOUNTER → 2020-07-26 | Outpatient (CLI) | payer MEDICARE ==
[~2020-07-26] MED LIST changes: +EFFIENT10 MG PO; +LIPITOR 40 MG T40 M1 PO; +NITROGLYCERIN0.4 MG SUBLING; +TOPROL XL25 MG PO
[2020-07-26 15:17] LABS: CALCIUM 9.4 mg/dL (8.5-10.1); MAGNESIUM 2.1 mg/dL (1.8-2.4); POTASSIUM 4.3 mmol/L (3.5-5.1)
== END ==
LOC: M.LAB 14:43
PROVIDERS: ATTEND Registered Nurse
DX: I25.10 Atherosclerotic heart disease of native coronary artery without angina pectoris (principal); I10 Essential (primary) hypertension